=== PATIENT | male | born 1950 | race American Indian/Alaskan Native ===

== ENCOUNTER 2018-12-15 09:03 | Emergency (ER) | payer MEDICARE ==
--- NOTE | 2018-12-15 09:40 | Emergency Department Report ---
HPI - General Chief Complaint: Upper Respiratory Infection Time Seen by Provider: 12/15/18 09:32 - HPI HPI: 68-year-old -Spanish male presents to the emergency department with complaint of a one-month history of a mixed dry and productive cough. He denies any shortness of breath, chest pain, back pain, fever or any other symptoms. He is a former smoker. He has a primary care physician but cannot currently remember their name and has not seen them yet for his current symptoms. No recent travel or sick contacts at home. He has not taken anything for his symptoms prior to arrival. ED Past Medical Hx - Past Medical History Previous Medical History?: No - Surgical History Past Surgical History?: Yes Additional Surgical History: throat surgery at young age - Social History Smoking Status: Former Smoker Substance Use Type: None - Medications Home Medications: Home Medications Medication Instructions Recorded Confirmed Last Taken Type ALBUTEROL Inhaler (OR & NICU) 2 puff IH QID PRN #1 inhalation 12/15/18 Unknown Rx [ProAir HFA Inhaler] Benzonatate [Tessalon Perles] 100 mg PO Q8HR PRN #20 capsule 12/15/18 Unknown Rx ED Review of Systems ROS: Stated complaint: COUGH Other details as noted in HPI Comment: All other systems reviewed and negative Constitutional: denies: chills, fever ENT: denies: ear pain, throat pain Respiratory: cough. denies: shortness of breath Cardiovascular: denies: chest pain, edema Gastrointestinal: denies: abdominal pain, vomiting (was back) Musculoskeletal: denies: back pain, arthralgia (now) Neurological: denies: headache, weakness Physical Exam - Physical Exam Vital Signs: Vital Signs 12/15/18 09:08 Temperature 98.5 F Pulse Rate 76 Respiratory 18 Rate Blood Pressure 134/76 O2 Sat by Pulse 99 Oximetry Physical Exam: GENERAL: The patient is well-developed well-nourished. HENT: Normocephalic. Atraumatic. Patient has moist mucous membranes. EYES: Extraocular motions are intact. NECK: Supple. Trachea is midline. CHEST/LUNGS: Mild expiratory wheeze. No tachypnea or accessory muscle use. No cough heard during examination. There is no respiratory distress noted. HEART/CARDIOVASCULAR: Regular. There is no tachycardia. There is no murmur. ABDOMEN: There is no abdominal distention. SKIN: Skin is warm and dry. NEURO: The patient is awake, alert, and oriented. The patient is cooperative. The patient has no focal neurologic deficits. Normal speech. MUSCULOSKELETAL: There is no tenderness or deformity. There is no limitation range of motion. There is no evidence of acute injury. ED Course Vital Signs 12/15/18 09:08 Temperature 98.5 F Pulse Rate 76 Respiratory 18 Rate Blood Pressure 134/76 O2 Sat by Pulse 99 Oximetry ED Medical Decision Making - Radiology Data Radiology results: image reviewed interpreted by me: Chest x-ray does not show any acute process. There are no pleural effusions, obvious pneumonia and there is no pneumothorax. - Medical Decision Making Patient presents with a one-month history of a mixed dry and productive cough. Chest x-ray does not show any pleural effusions, pneumonia, pneumothorax, focal consolidation or any acute process. Vital signs stable including being afebrile. He was given a dose of Decadron. He will be discharged home with an albuterol inhaler and an antitussive medication. He has been instructed to follow-up with the primary care physician and return with any worsening of his symptoms or any acute distress. - Differential Diagnosis URI, bronchitis, pneumonia, asthma Critical Care Time: No Critical care attestation.: If time is entered above; I have spent that time in minutes in the direct care of this critically ill patient, excluding procedure time. ED Disposition Clinical Impression: Bronchitis Disposition: DC-01 TO HOME OR SELFCARE Is pt being admited?: No Condition: Stable Instructions: Acute Bronchitis (ED) Additional Instructions: Please follow-up with your primary care physician in the next few days. Return to the emergency Department with any worsening of your symptoms or any acute distress. Prescriptions: ALBUTEROL Inhaler (OR & NICU) [ProAir HFA Inhaler] 2 puff IH QID PRN #1 inhalation PRN Reason: Shortness Of Breath Benzonatate [Tessalon Perles] 100 mg PO Q8HR PRN #20 capsule PRN Reason: Cough Referrals: PCP, Your [Other] - 3-5 Days Time of Disposition: 10:58
[2018-12-15] MEDS ORDERED: DEXAMETHASONE 4 MG TAB PO ONE (10:42)
--- NOTE | 2018-12-15 10:52 | XRay Report ---
CHEST 2 VIEWS INDICATION / CLINICAL INFORMATION: cough. COMPARISON: None available. FINDINGS: SUPPORT DEVICES: None. HEART / MEDIASTINUM: No significant abnormality. LUNGS / PLEURA: There are postsurgical changes in the right upper lung with residual linear scarring. No significant consolidation or pleural effusion is identified. No pneumothorax. ADDITIONAL FINDINGS: No significant additional findings. IMPRESSION: 1. No definite acute findings. 2. 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 Signer Name: Cuauhtemoc Wilson MD Signed: 12/15/2018 10:47 AM Workstation Name: [id number]
[2018-12-15 11:32] VITALS: BP 131/72
== END 2018-12-15 11:31 | disposition home or self-care (01) ==
LOC: ED 09:03
DX: J40 Bronchitis, not specified as acute or chronic (principal); Z87.891 Personal history of nicotine dependence; Z79.899 Other long term (current) drug therapy
CPT/HCPCS: 71046; 99283; J8540

== ENCOUNTER 2019-02-05 09:01 | Emergency (ER) | payer MEDICARE ==
[2019-02-05] MEDS ORDERED: ALUM-MAG HYDROXIDE-SIMETHICONE 200-200-20MG/5ML ORAL LIQD 30 ML PO ONE (11:56)
--- NOTE | 2019-02-05 12:11 | Emergency Department Report ---
ED General Adult HPI - General Chief complaint: Pain General Stated complaint: CANT SWALLOW Time Seen by Provider: 02/05/19 11:11 Source: patient Mode of arrival: Ambulatory Limitations: No Limitations - History of Present Illness Initial comments: This pleasant 68-year-old male presents the emergency department with chief complaint of throat swelling. 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 He states he had never had any swelling in the past but over the past 3 days he noticed some swelling worsen the right side of his neck. He reports this is causing him difficulty with swallowing and increased acid reflux. Patient denies any associated fevers, chills, night sweats, headache, discomfort blurry vision, chest pain, shortness of breath or any other associated symptoms. Patient reports the pain is 4 out of 10 and describes it as burning. Radiation: non-radiation Severity scale (0 -10): 4 - Related Data Previous Rx's Medication Instructions Recorded Last Taken Type ALBUTEROL Inhaler (OR & NICU) 2 puff IH QID PRN #1 inhalation 12/15/18 Unknown Rx [ProAir HFA Inhaler] Benzonatate [Tessalon Perles] 100 mg PO Q8HR PRN #20 capsule 12/15/18 Unknown Rx Cephalexin [Keflex] 750 mg PO Q8HR #30 capsule 02/05/19 Unknown Rx Omeprazole 20 mg PO QDAY #30 capsule. 02/05/19 Unknown Rx Sucralfate [Carafate] 1 gm PO ACHS #90 tablet 02/05/19 Unknown Rx Allergies Allergy/AdvReac Type Severity Reaction Status Date / Time No Known Allergies Allergy Verified 02/05/19 09:04 ED Review of Systems ROS: Stated complaint: CANT SWALLOW Other details as noted in HPI Comment: All other systems reviewed and negative Constitutional: denies: chills, fever Eyes: denies: eye pain, eye discharge, vision change ENT: as per HPI, throat pain. denies: ear pain Respiratory: denies: cough, shortness of breath, wheezing Cardiovascular: denies: chest pain, palpitations Endocrine: no symptoms reported Gastrointestinal: denies: abdominal pain, nausea, diarrhea Genitourinary: denies: urgency, dysuria Musculoskeletal: denies: back pain, joint swelling, arthralgia Skin: denies: rash, lesions Neurological: denies: headache, weakness, paresthesias Psychiatric: denies: anxiety, depression Hematological/Lymphatic: denies: easy bleeding, easy bruising ED Past Medical Hx - Past Medical History Previous Medical History?: No - Surgical History Past Surgical History?: Yes Additional Surgical History: throat surgery at young age - Social History Smoking Status: Never Smoker Substance Use Type: None - Medications Home Medications: Home Medications Medication Instructions Recorded Confirmed Last Taken Type ALBUTEROL Inhaler (OR & NICU) 2 puff IH QID PRN #1 inhalation 12/15/18 Unknown Rx [ProAir HFA Inhaler] Benzonatate [Tessalon Perles] 100 mg PO Q8HR PRN #20 capsule 12/15/18 Unknown Rx Cephalexin [Keflex] 750 mg PO Q8HR #30 capsule 02/05/19 Unknown Rx Omeprazole 20 mg PO QDAY #30 capsule. 02/05/19 Unknown Rx Sucralfate [Carafate] 1 gm PO ACHS #90 tablet 02/05/19 Unknown Rx ED Physical Exam - General Limitations: No Limitations General appearance: alert, in no apparent distress - Head Head exam: Present: atraumatic, normocephalic - Eye Eye exam: Present: normal appearance, PERRL, EOMI Pupils: Present: normal accommodation - ENT ENT exam: Present: normal exam, mucous membranes moist, other (no periorbital tenderness, retropharyngeal bulging or tongue elevation. Mild soft tissue swelling to the right side of the neck with previous surgical scar. No induration or drainage. Normal flexion-extension and lateral rotation of the spine. No meningismus.) - Neck Neck exam: Present: normal inspection - Respiratory Respiratory exam: Present: normal lung sounds bilaterally. Absent: respiratory distress - Cardiovascular Cardiovascular Exam: Present: regular rate, normal rhythm. Absent: systolic murmur, diastolic murmur, rubs, gallop - GI/Abdominal GI/Abdominal exam: Present: soft, normal bowel sounds - Rectal Rectal exam: Present: deferred - Extremities Exam Extremities exam: Present: normal inspection - Back Exam Back exam: Present: normal inspection - Neurological Exam Neurological exam: Present: alert, oriented X3 - Psychiatric Psychiatric exam: Present: normal affect, normal mood - Skin Skin exam: Present: warm, dry, intact, normal color. Absent: rash ED Course Vital Signs 02/05/19 09:19 Temperature 98.6 F Pulse Rate 91 H Respiratory 18 Rate Blood Pressure 126/73 Blood Pressure 126/73 [Right] O2 Sat by Pulse 98 Oximetry ED Medical Decision Making - Lab Data Result diagrams: 02/05/19 12:16 02/05/19 12:16 Lab Results 02/05/19 02/05/19 Range/Units 12:16 12:16 WBC 13.6 H (4.5-11.0) K/mm3 RBC 4.03 (3.65-5.03) M/mm3 Hgb 10.6 L (11.8-15.2) gm/dl Hct 33.4 L (35.5-45.6) % MCV 83 L (84-94) fl MCH 26 L (28-32) pg MCHC 32 (32-34) % RDW 13.6 (13.2-15.2) % Plt Count 256 (140-440) K/mm3 Lymph % (Auto) 10.5 L (13.4-35.0) % [place] % (Auto) 7.9 H (0.0-7.3) % Eos % (Auto) 0.0 (0.0-4.3) % Baso % (Auto) 1.4 (0.0-1.8) % Lymph # 1.4 (1.2-5.4) K/mm3 [place] # 1.1 H (0.0-0.8) K/mm3 Eos # 0.0 (0.0-0.4) K/mm3 Baso # 0.2 H (0.0-0.1) K/mm3 Seg Neutrophils % 80.2 H (40.0-70.0) % Seg Neutrophils # 10.9 H (1.8-7.7) K/mm3 Sodium 135 L (137-145) mmol/L Potassium 4.7 (3.6-5.0) mmol/L Chloride 98.5 (98-107) mmol/L Carbon Dioxide 18 L (22-30) mmol/L Anion Gap 23 mmol/L BUN 19 (9-20) mg/dL Creatinine 0.7 L (0.8-1.5) mg/dL Estimated GFR > 60 ml/min BUN/Creatinine Ratio 27 % Glucose 86 (75-100) mg/dL Calcium 9.5 (8.4-10.2) mg/dL Total Bilirubin 1.90 H (0.1-1.2) mg/dL AST 20 (5-40) units/L ALT 12 (7-56) units/L Alkaline Phosphatase 101 (35-129) units/L Total Protein 8.2 (6.3-8.2) g/dL Albumin 3.9 (3.9-5) g/dL Albumin/Globulin Ratio 0.9 % - Radiology Data Radiology results: report reviewed, image reviewed Cat Scan Report Signed Patient: SHAR YA MR#: [id number] : 1950 Acct:[id number] Age/Sex: 68 / M ADM Date: 02/05/19 Loc: ED Attending Dr: Ordering Physician: SUNDAR LAZAR Date of Service: 02/05/19 Procedure(s): CT neck w con Accession Number(s): [id number] cc: SUNDAR LAZAR CT NECK WITH CONTRAST HISTORY: Large mass right sided neck COMPARISON: Esophagram from 06/11/2012 TECHNIQUE: Routine CT of the neck is performed following intravenous contrast. All CT scans at this location are performed using CT dose reduction for ALARA by means of automated exposure control CONTRAST: 100 mL Omnipaque 300 FINDINGS: Skull Base: No significant abnormality. Parotid, Carotid, Retropharyngeal, Prevertebral, Pharyngeal Mucosal, and Service Line Bus Cleaner Spaces: No abnormal mass, enhancing lesion or other significant abnormality. Large right cervical esophageal diverticulum is seen communicating the cervical esophagus at the C7-T1 level, below the cricopharyngeus muscle. This was seen in the cerebellar June 2012. Airway: Patent and without significant abnormality. Lymphatics: No lymphadenopathy. Vasculature: No significant abnormality. Osseous Structures: No significant abnormality Additional findings: Fibrotic changes are seen in the apices of the lungs. IMPRESSION: Large right cervical esophageal diverticulum communicating esophagus at the C7-T 1 level (below cricopharyngeus muscle Signer Name: Jimmy Isidro MD Signed: 02/05/2019 2:30 PM Workstation Name: [id number] Transcribed By: BS Dictated By: Jimmy Stephens MD Electronically Authenticated By: Jimmy Stephens MD Signed Date/Time: 02/05/19 1430 - Medical Decision Making Patient nontoxic in no acute distress. 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 Patient clinical exam relatively unremarkable with some possible mild fullness of the anterior neck. Labs and CT were ordered labs showed a mild increase in his white blood cell count 13. Due to him ever having this swelling before I will cover him with short course of antibiotics due to his associated elevation of the white blood cell count no obvious infection seen clinically or on imaging. Patient will be also treated with omeprazole and Carafate to his symptoms of acid reflux and recommend follow-up with his GI specialist. CT scan showed a large diverticulum which was similar in appearance to scan from 2013. No new findings. Patient verbalizes understanding of the diagnosis, treatment plan and follow-up i nstructions and all of his questions were answered. - Differential Diagnosis cellulitis, aneurysm, diverticulitis Critical care attestation.: If time is entered above; I have spent that time in minutes in the direct care of this critically ill patient, excluding procedure time. ED Disposition Clinical Impression: Esophageal diverticulum Disposition: - TO HOME OR SELFCARE Is pt being admited?: No Condition: Stable Instructions: Diet for Ulcers and Gastritis (ED) Prescriptions: Sucralfate [Carafate] 1 gm PO ACHS #90 tablet Cephalexin [Keflex] 750 mg PO Q8HR #30 capsule Omeprazole 20 mg PO QDAY #30 capsule. Referrals: PRIMARY CAREMD [Primary Care Provider] - 3-5 Days [facility] [Provider Group] - 3-5 Days Time of Disposition: 14:54
[2019-02-05 12:54] LABS: Basophils # (Auto) 0.2 K/mm3 (0.0-0.1); Basophils % (Auto) 1.4 % (0.0-1.8); Hematocrit 33.4 % (35.5-45.6); Hemoglobin 10.6 gm/dl (11.8-15.2); Lymphocytes # (Auto) 1.4 K/mm3 (1.2-5.4); Lymphocytes % (Auto) 10.5 % (13.4-35.0); Mean Corpuscular HGB Conc 32 % (32-34); Mean Corpuscular Volume 83 fl (84-94); Monocytes # (Auto) 1.1 K/mm3 (0.0-0.8); Monocytes % (Auto) 7.9 % (0.0-7.3); Platelet Count 256 K/mm3 (140-440); Red Blood Count 4.03 M/mm3 (3.65-5.03); Red Cell Distribution Width 13.6 % (13.2-15.2)
[2019-02-05 13:03] LABS: Alanine Aminotransferase 12 units/L (7-56); Albumin 3.9 g/dL (3.9-5); BUN/Creatinine Ratio 27; Blood Urea Nitrogen 19 mg/dL (9-20); Calcium 9.5 mg/dL (8.4-10.2); Hemolysis Index 44
--- NOTE | 2019-02-05 14:35 | Cat Scan Report ---
CT NECK WITH CONTRAST HISTORY: Large mass right sided neck COMPARISON: Esophagram from 06/11/2012 TECHNIQUE: Routine CT of the neck is performed following intravenous contrast. All CT scans at this [facility] are performed using CT dose reduction for ALARA by means of automated exposure control CONTRAST: 100 mL Omnipaque 300 FINDINGS: Skull Base: No significant abnormality. Parotid, Carotid, Retropharyngeal, Prevertebral, Pharyngeal Mucosal, and Calender Supervisor Spaces: No abnorm al mass, enhancing lesion or other significant abnormality. Large right cervical esophageal diverticulum is seen communicating the cervical esophagus at the C7-T 1 level, below the cricopharyngeus muscle. This was seen in the cerebellar June 2012. Airway: Patent and without significant abnormality. Lymphatics: No lymphadenopathy. Vasculature: No significant abnormality. Osseous Structures: No significant abnormality Additional findings: Fibrotic changes are seen in the apices of the lungs. IMPRESSION: Large right cervical esophageal diverticulum communicating esophagus at the C7-T1 level (below crico pharyngeus muscle Signer Name: Jimmy Isidro MD Signed: 02/05/2019 2:30 PM Workstation Name: [id number]
[2019-02-05 15:05] VITALS: BP 92/53
== END 2019-02-05 15:03 | disposition home or self-care (01) ==
LOC: ED 09:01
DX: K22.5 Diverticulum of esophagus, acquired (principal)
CPT/HCPCS: 36415; 70491; 80053; 85025; 99284; Q9967